=== PATIENT | male | born 1970 | race Caucasian/White ===

== ENCOUNTER 2018-05-03 12:20 | Emergency (ER) | payer OTHER ==
[~2018-05-03] VITALS: Ht 185.4 cm; Wt 126.1 kg
[2018-05-03 12:54] VITALS: BP 141/84
[2018-05-03 13:37] LABS: BASOPHIL % 0.4 % (0.0-0.2); EOSINOPHIL # 0.2 10^3/uL (0.0-0.2); EOSINOPHIL % 3.2 % (0.0-5.0); HEMOGLOBIN 14.5 g/dL (13.9-16.3); LYMPHOCYTES # 1.4 10^3/uL (1.0-4.8); LYMPHOCYTES % 25.1 % (24.0-44.0); MEAN CELL HGB 32.2 pg (26-34); MEAN CELL HGB CONCENTRATION 35.5 g/dL (33-37); MEAN CORP VOLUME 90.9 fL (78-100); MEAN PLATELET VOLUME 9.5 fL (7.8-11.0); MONOCYTES # 0.5 10^3/uL (0.3-0.8); MONOCYTES % 9.4 % (5.0-12.0); NEUTROPHIL # 3.5 10^3/uL (1.8-7.7); NEUTROPHILS % 61.5 % (41.0-85.0); RED CELL DISTRIBUTION WIDTH 12.3 % (11.5-14.5); WHITE BLOOD CELL 5.7 10^3/uL (4.5-11.0)
[2018-05-03 13:50] VITALS: BP 137/86
[2018-05-03 13:51] LABS: CALCIUM 8.9 mg/dL (8.4-10.5); CARBON DIOXIDE 27.8 mmol/L (20.0-32)
--- NOTE | 2018-05-03 13:51 | ER.PDOC ---
General Chief Complaint: Extremities Stated Complaint: POSS DVT Time seen by MD: 13:48 Source: patient Exam Limitations: no limitations History of Present Illness Initial Comments Possible DVT RLE. Patient garcia had DVT in the past and leg looking more swollen and painful than normal. Onset: yesterday Severity: mild Exacerbated By: nothing Relieved By: nothing Prior symptoms/Treatment: Similar symptoms previous Allergies: Coded Allergies: NSAIDS (Non-Steroidal Anti-Inflamma (Unverified Adverse Reaction, Severe, 05/03/18) PT CAN NOT HAVE NSAIDS DUE TO WARFRIN Past Medical History Surgical History: appendectomy, renal Social History Smoking: quit less than 1 year Alcohol Use: none Drug Use: none Review of Systems Constitutional: no symptoms reported EENTM: no symptoms reported Respiratory: no symptoms reported Cardiovascular: no symptoms reported Gastrointestinal: no symptoms reported Musculoskeletal: see HPI All Other Systems: Reviewed and Negative Physical Exam General Appearance: Alert, No Apparent Distress Lower Extremity: nml inspection, no pedal edema, tenderness (mild right leg) Joint Exam: joints nml, nml ROM, nml gait/weight bearing Vascular: no vascular compromise, pulses full/equal Neuro/Psych: sensation nml, motor nml, oriented x3, CN's nml as tested, mood/ affect nml Skin: color nml, warm/dry, no rash Back/Neck: nml inspection EENT: eyes inspection nml, ENT inspection nml, pharynx nml Respiratory: no resp distress, breath sounds nml CVS: reg rate & rhythm, heart sounds nml Abdomen: non-tender, no organomegaly, no bruit/mass Results/Orders Results/Orders Laboratory Tests Test 05/03/18 13:34 White Blood Count 5.7 10^3/uL (4.5-11.0) Red Blood Count 4.50 10^6/uL (4.50-5.90) Hemoglobin 14.5 g/dL (13.9-16.3) Hematocrit 40.9 % (37.0-53.0) Mean Corpuscular Volume 90.9 fL (78-100) Mean Corpuscular Hemoglobin 32.2 pg (26-34) Mean Corpuscular Hemoglobin Concent 35.5 g/dL (33-37) Red Cell Distribution Width 12.3 % (11.5-14.5) Platelet Count 204 10^3/uL (150-400) Mean Platelet Volume 9.5 fL (7.8-11.0) Neutrophils (%) (Auto) 61.5 % (41.0-85.0) Lymphocytes (%) (Auto) 25.1 % (24.0-44.0) Monocytes (%) (Auto) 9.4 % (5.0-12.0) Neutrophils # (Auto) 3.5 10^3/uL (1.8-7.7) Lymphocytes # (Auto) 1.4 10^3/uL (1.0-4.8) Monocytes # (Auto) 0.5 10^3/uL (0.3-0.8) Absolute Immature Granulocyte (auto 0.02 10^3 u/L (0-2) Eosinophils % 3.2 % (0.0-5.0) Basophils % 0.4 % (0.0-0.2) Basophils # 0.0 10^3/uL (0.0-0.1) Eosinophil Count 0.2 10^3/uL (0.0-0.2) Prothrombin Time 29.0 SEC (9.8-11.9) Prothrombin Time INR (Non-Therap) 3.0 Sodium Level 139 mmol/L (132-145) Potassium Level 3.8 mmol/L (3.6-5.2) Chloride Level 106.0 mmol/L (96-109) Carbon Dioxide Level 27.8 mmol/L (20.0-32) Glucose Level 108 mg/dL (70-110) Blood Urea Nitrogen 11 mg/dL (7-18) Creatinine 1.08 mg/dL (0.59-1.40) Calcium Level 8.9 mg/dL (8.4-10.5) Anion Gap 9.0 Estimated GFR () 87.6 (>/=60) BUN/Creatinine Ratio 10.0 Percent Immature Gran (Cell Imm) 0.40 % (0.00-0.50) EKG/XRAY/CT/US Utrasound Comments: No DVT right leg Departure Time of Disposition: 15:06 Disposition: 01 HOME, SELF-CARE Impression: Primary Impression: Leg pain, right Condition: Stable Referrals: PCP,UNKNOWN (PCP) PRIMARY CARE PROVIDER Additional Instructions: Continue home medications F/U with your PCP as needed. Duration or Time Spent with Pa: 2 hours PORFIRIO SIDDIQI MD May 03, 2018 13:51
--- NOTE | 2018-05-03 14:45 | DIREP ---
PROCEDURE:US DUPLEX EXTREM VEINS UNILATER/LIMITED-RT COMPARISON:None. INDICATIONS:swelling, possible DVT TECHNIQUE:The right lower extremity was evaluated utilizing gasca scale images with segmental compression, color Doppler, and spectral Doppler with respiratory variation and augmentation. FINDINGS: Common femoral vein:Patent Profunda femoris vein:Patent Superficial femoral vein:Patent Popliteal vein:Patent Posterior tibial vein:Patent Peroneal vein:Patent Greater saphenous vein:Patent Left common femoral vein:Patent Waveforms are within normal limits. CONCLUSION: No DVT identified in the right lower extremity. Dictated by: ROYAA Physician on 05/03/2018 at 02:40 PM ld
[2018-05-03 14:50] VITALS: BP 140/81
[2018-05-03 15:34] VITALS: BP 134/81
[2018-05-03 16:22] VITALS: BP 134/81
== END 2018-05-03 15:34 | disposition home or self-care (01) ==
LOC: ER 12:20
DX: M79.661 Pain in right lower leg (principal); M79.89 Other specified soft tissue disorders; R79.1 Abnormal coagulation profile; Z88.6 Allergy status to analgesic agent; Z90.49 Acquired absence of other specified parts of digestive tract; Z87.891 Personal history of nicotine dependence; Z86.718 Personal history of other venous thrombosis and embolism
CPT/HCPCS: 36415; 80048; 85025; 85610; 99285; 93971